=== PATIENT | female | born 1985 | race Caucasian/White ===

== ENCOUNTER 2019-05-16 12:05 | Emergency (ER) | payer SELFPAY ==
[2019-05-16 12:07] VITALS: BP 124/92; PULSE 103; PULSE 110; RESP 18; RESP 19; TEMP 36.9; O2SAT 98; O2SAT 99; BMI 20.5
--- NOTE | 2019-05-16 12:26 | EKG12_ITS ---
Test Reason : DYSRHYTHMIA Blood Pressure : / mmHG Vent. Rate : 094 BPM Atrial Rate : 094 BPM P-R Int : 126 ms QRS Dur : 066 ms QT Int : 356 ms P-R-T Axes : 071 056 062 degrees QTc Int : 445 ms Normal sinus rhythm Normal ECG Confirmed by KSENIA NEWSOME ([id number]), general expeditor LINDSAY SUAREZ ([id number]) on 05/19/2019 11:20:49 AM Referred By: GERALDINE Confirmed By:KSENIA NEWSOME
--- NOTE | 2019-05-16 12:26 | CT_ITS ---
STUDY: CT BRAIN WITHOUT CONTRAST REASON FOR EXAM: Female, 33 years old. Semi responsive in car woke with Narcan. RADIATION DOSAGE (If Supplied By Facility): CTDIvol = ( 44.99 ) mGy, DLP = ( 762.36 ) mGycm TECHNIQUE: Transaxial CT imaging of the brain was performed without administration of intravenous contrast material. Individualized dose optimization techniques were used for this CT. COMPARISON: No relevant priors. FINDINGS: Normal soft tissue structures. Normal calvarium. Normal size ventricles and extra-axial spaces for the patient's age. Normal white matter tracts of the cerebral hemispheres. Normal basal ganglia and thalami. Normal brainstem. Normal cerebellum. There is no intracranial hemorrhage. There are no findings of an acute ischemic infarction. The right-sided maxillary mucosal retention cyst. CT/Brain/Head without Contrast IMPRESSION: Normal unenhanced CT scan of the brain. Electronically Signed: Ruth Martinez MD at 13:11 EST Tel , Service support ,
--- NOTE | 2019-05-16 12:27 | ED.VIS.GEN ---
History of Present Illness Chief Complaint: Unresponsive Informant: Patient, D[employer]or Onset: Today - JPTA Context: Sudden Onset Quality: unresponsive Location: sitting in her car Current Severity: gone Maximum Severity: Severe Narrative: Patient states an acquaintance of hers called and asked for her to give her a ride to a town 9 miles away. She told her okay, she got in the car when she picked her up and then she does not remember anything until she awoke by paramedics giving her 2 mg of Narcan intranasally in that town 9 miles away. The girl she gave a ride to was gone. Patient denies doing any drugs or substances. She does not have a history of opiate or IV drug use. She is a smoker. She was feeling fine today before this. No recent illnesses. No head injuries. She states her brain feels a little foggy in her vision is a little blurry but she otherwise feels fine but scared. - Past Medical History (1) Anxiety Status: Chronic Past Medical History - Allergies and Home Meds Allergies/Adverse Reactions: Allergies Sulfa (Sulfonamide Antibiotics) Allergy (Verified 05/16/19 12:06) Hives Primary Care Physician: Care Physician,No Primary [Primary Care Provider] - Lives: Alone Smoking Status: Current every day smoker Alcohol: None Drugs: None Review of Systems General: Reports: Malaise. Denies: Chills, Fever, Sweats Eyes: Reports: Blurred Vision - bilaterally. Denies: Diplopia ENT: Denies: Rhinorrhea, Sore throat Cardiovascular: Denies: Chest pain, Palpitations Respiratory: Denies: Dyspnea, Cough, Dyspnea on exertion Gastrointestinal: Denies: Abdominal pain, Nausea, Vomiting, Diarrhea, Melena, Hematochezia Genitourinary: Denies: Dysuria, Hematuria, Frequency Musculoskeletal: Denies: Neck pain, Back pain, Swelling, Extremity Pain Skin: Denies: Rash, Wounds Neurological: Denies: Headache, Weakness, Numbness Physical Exam Vital Signs/Narrative: Vital Signs Temp Pulse Resp BP Pulse Ox 05/16/19 12:07 98.5 F 103 H 18 124/92 H 99 Inital Vital Signs reviewed: Yes General: Well nourished, Well developed, No Acute Distress Head: Normocephalic, Atraumatic Eyes: Perrl, EOMI ENT: Moist mucous membranes, No rhinorrhea Neck: Supple, Nontender Cardiovascular: Regular rate, Regular rhythm, No murmurs Respiratory: No distress, CTA bilaterally, Chest nontender Abdomen: Soft, Nontender, Nondistended, Normal bowel sounds Back: Nontender, Normal Inspection Extremities: Nontender, No edema Skin: Normal color, No rash, No Trauma - no evidence of any track conroy to indicate IVDU Neurological: Alert, Oriented x3, Cranial nerves II-XII grossly intact, Normal Strength, Normal Sensation, Normal Gait Psychological: Tearful Diagnostic/Tx/Re-eval Impressions Brain CT 05/16/19 12:26 IMPRESSION: Normal unenhanced CT scan of the brain. Electronically Signed: Ruth Martinez MD at 13:11 EST Tel , Service support , 05/16/19 12:26 Brain/Head without Contrast [CT] Stat Laboratory Results 05/16/19 05/16/19 05/16/19 12:34 12:34 12:34 WBC 5.0 RBC 4.65 Hgb 14.5 Hct 43.4 MCV 93.3 MCH 31.2 MCHC 33.4 RDW Std Deviation 43.5 RDW Coeff of Armen 12.8 Plt Count 242 MPV 8.8 Immature Gran % (Auto) 0.200 Neut % (Auto) 54.5 Lymph % (Auto) 38.3 [place] % (Auto) 6.2 Eos % (Auto) 0.2 Baso % (Auto) 0.6 Absolute Neuts (auto) 2.7 Absolute Lymphs (auto) 1.91 Nucleated RBC % 0 Sodium 141 Potassium 3.5 Chloride 106 Carbon Dioxide 27.0 Anion Gap 8 BUN 11 Creatinine 0.73 Estim Creat Clear Calc 88.98 Est GFR (MDRD) Af Amer 116 Est GFR (MDRD) Non-Af 96 BUN/Creatinine Ratio 15.1 Glucose 89 Calcium 8.3 L Urine Test Negative Urine Opiates Screen Urine Methadone Screen Ur Barbiturates Screen Ur Phencyclidine Scrn Ur Amphetamines Screen U Methamphetamin-MDMA U Benzodiazepines Scrn Urine Cocaine Screen U Cannabinoids Screen Ur Drug Screen Comment 05/16/19 12:34 WBC RBC Hgb Hct MCV MCH MCHC RDW Std Deviation RDW Coeff of Armen Plt Count MPV Immature Gran % (Auto) Neut % (Auto) Lymph % (Auto) [place] % (Auto) Eos % (Auto) Baso % (Auto) Absolute Neuts (auto) Absolute Lymphs (auto) Nucleated RBC % Sodium Potassium Chloride Carbon Dioxide Anion Gap BUN Creatinine Estim Creat Clear Calc Est GFR (MDRD) Af Amer Est GFR (MDRD) Non-Af BUN/Creatinine Ratio Glucose Calcium Urine Test Urine Opiates Screen NEGATIVE Urine Methadone Screen NEGATIVE Ur Barbiturates Screen NEGATIVE Ur Phencyclidine Scrn NEGATIVE Ur Amphetamines Screen NEGATIVE U Methamphetamin-MDMA NEGATIVE U Benzodiazepines Scrn NEGATIVE Urine Cocaine Screen NEGATIVE U Cannabinoids Screen NEGATIVE Ur Drug Screen Comment - Rhythm Strip Rhythm Strip: Sinus Rhythm Rate: 95 Ectopy: None - EKG Initial EKG Interpretation: Sinus Rhythm, No Acute Injury Pattern - normal EKG - Medical Decision Making Given patient's story and symptoms, along with her exam, this is suspicious for a fentanyl exposure. There is a high prevalence of fentanyl overdose/abuse in the area in recent times, and there have been several recent reported cases of nursing collapsing when caring for car fentanyl-exposed the patient's, just from being in the room. As I discussed with the patient prior to running any testing, this is a possible scenario for her. She acted very scared and continued to state that she had no idea what happened to her but that she intentionally has done no drugs, except she smokes cigarettes. Therefore as I discussed with her, since it is impossible to test for fentanyl here in the ER and confirmed this therapy, I recommended running other test to rule out other problems while monitoring her since she was awakened with Narcan. She agreed with this plan. Testing is negative as above. However prior to reviewing it and reevaluating the patient, she ELOPED, stating to the nurse because of I'm tired of waiting. I know what I did was stupid. ED Disposition - Plan for ED Patient: Disposition: Against Medical Advice Diagnosis: Accidental fentanyl overdose Referrals: Care Physician,No Primary [Primary Care Provider] -
[2019-05-16 12:44] LABS: Absolute Lymphocyte Count 1.91 X10^3/uL (0.83-4.51); Absolute Neutrophil Count 2.7 X10^3/uL (2.0-7.7); Basophil# 0.03 X10^3/uL; Basophil% 0.6 % (0-1); Eosinophil# 0.01 X10^3/uL; Eosinophils% 0.2 % (0-5); Hematocrit 43.4 % (37-47); Hemoglobin 14.5 g/dL (12.0-15.0); Lymphocyte # 1.91 X10^3/ul (4.0); Lymphocyte % 38.3 % (19-41); Mean Corp Hgb Conc 33.4 g/dL (32-36); Mean Corpuscular Hgb 31.2 pg (27.0-32.0); Mean Corpuscular Volume 93.3 fL (81-99); Mean Platelet Vol. 8.8 fl (6.2-12.0); Monocyte# 0.31 X10^3/uL; Monocyte% 6.2 % (0-10); NRBC Flagged by Analyzer 0 % (0-5); Neutrophil # 2.72 X10^3/uL (2.7-7.7); Neutrophil % 54.5 % (47-70); Platelet Count 242 K/mm3 (150-450); RBC Distribution Width CV 12.8 % (11.6-14.6); RBC Distribution Width SD 43.5 fl (35.1-43.9); Red Blood Count 4.65 M/mm3 (4.2-5.4)
[2019-05-16 12:52] LABS: Internal QC Validated? YES +Cl - CLEAR BKGD; Pregnancy, Urine Negative Negative
[2019-05-16 12:58] LABS: Anion Gap 8 (5-15); BUN 11 mg/dL (7-18); BUN/Creat Ratio 15.1 RATIO (10-20); Calcium,Total 8.3 mg/dL (8.5-10.1); Chloride 106 mmol/L (98-107); Creatinine, Serum 0.73 mg/dL (0.55-1.02); EST Glomerular Filtration Rate 96 mL/min (>60); Est Glom Filt Rate - Afr Amer 116 mL/min (>60); Estimated Creatinine Clearance 88.98 ml/min; Glucose 89 mg/dL (74-106); Potassium 3.5 mmol/L (3.5-5.1); Sodium Level 141 mmol/L (136-145)
[2019-05-16 13:00] LABS: Amphetamine Urine VISTA NEGATIVE (<1000 ng/mL); Barbiturate Urine VISTA NEGATIVE (< 200 ng/mL); Benzodiazepine Urine VISTA NEGATIVE (< 200 ng/mL); Cocaine Urine VISTA NEGATIVE (< 300 ng/mL); Ecstacy Urine VISTA NEGATIVE (< 500 ng/mL); Methadone Urine VISTA NEGATIVE (< 300 ng/mL); PCP Urine VISTA NEGATIVE (< 25 ng/mL); THC Urine VISTA NEGATIVE (< 50 ng/mL); Vista UDS pH Range 5
--- NOTE | 2019-05-16 14:21 | ED.RN ---
PT STATED SHE WANTED HER IV OUT OR SHE WAS TAKING IT OUT HERSELF. STATED SHE HAS BEEN HER LONG ENOUGH AND IS GOING HOME. IV WAS DC'D WITH CATHETER INTACT. NURSE AND PHYSICIAN NOTIFIED. SECURITY AT BEDSIDE WELL. PT EDUCATED ON THE RISKS AND DANGERS OF WHAT COULD HAPPEN IF NARCAN WEARS OFF AND ALSO IF SHE GOES HOME AND USES AGAIN. PT VERBALIZED UNDERSTANDING.
== END 2019-05-16 14:32 | disposition left against medical advice (07) ==
LOC: ED 13:04
PROVIDERS: Emergency Provider Emergency Medicine
DX: T40.4X1A Poisoning by other synthetic narcotics, accidental (unintentional), initial encounter (principal); H53.8 Other visual disturbances; Y92.9 Unspecified place or not applicable; Z53.21 Procedure and treatment not carried out due to patient leaving prior to being seen by health care provider; F17.200 Nicotine dependence, unspecified, uncomplicated
CPT/HCPCS: 70450; 80048; 80307; 81025; 85025; 93005; 96360; 96361; 99285; J7030; A4216

== ENCOUNTER 2019-05-17 09:59 | Emergency (ER) | payer SELFPAY ==
[2019-05-16 12:07] VITALS: BMI 20.5
[2019-05-17 10:00] VITALS: BP 160/113; PULSE 121; RESP 19; TEMP 36.6; O2SAT 99; BMI 19.5
--- NOTE | 2019-05-17 10:18 | ED.DCSUM_ITS ---
History of Present Illness Chief Complaint: Nausea/Vomiting Detail of Chief Complaint: Nausea and vomiting, excessive alcohol use Informant: Patient Onset: Days Narrative: Patient reports nausea and vomiting for the last 3 days having difficulty keeping anything down. She states she is been drinking a lot of vodka in the last week and a half stating that it is cheap and easily available. She states she just does not want to feel anything. She denies that she is suicidal. She states her is currently in [facility] for the next 6 months and this seemed to trigger her depression and drinking. It is noted the patient was seen here yesterday after an unresponsive episode. She woke up after being given 2 mg of intranasal Narcan. Patient denies any drug use. - Past Medical History (1) Anxiety Status: Chronic Past Medical History - Allergies and Home Meds Allergies/Adverse Reactions: Allergies Sulfa (Sulfonamide Antibiotics) Allergy (Verified 05/17/19 10:00) Hives Primary Care Physician: Care Physician,No Primary [Primary Care Provider] - Prior records reviewed: Yes Lives: Alone Smoking Status: Current every day smoker Alcohol: Occasional Review of Systems General: Denies: Chills, Fever Eyes: Denies: Visual changes - bilaterally ENT: Denies: Bilateral ear pain Cardiovascular: Denies: Chest pain Respiratory: Denies: Dyspnea Gastrointestinal: Reports: Nausea, Vomiting. Denies: Diarrhea Genitourinary: Denies: Dysuria Musculoskeletal: Denies: Extremity Pain Psych: Reports: Depression. Denies: Suicidal thoughts, Suicidal ideations Allergy: Denies: Uticaria Physical Exam Vital Signs/Narrative: Vital Signs Temp Pulse Resp BP Pulse Ox 05/17/19 10:00 97.8 F 121 H 19 H 160/113 H 99 Inital Vital Signs reviewed: Yes General: Well nourished, Well developed Head: Normocephalic ENT: Moist mucous membranes Cardiovascular: Tachycardia Respiratory: No distress, CTA bilaterally Abdomen: Soft, Nontender Extremities: Nontender Skin: Normal color Neurological: Oriented x3 Psychological: Tearful Diagnostic/Tx/Re-eval Laboratory Results 05/17/19 05/17/19 05/17/19 10:30 10:30 10:30 WBC 7.0 RBC 4.55 Hgb 14.6 Hct 42.5 MCV 93.4 MCH 32.1 H MCHC 34.4 RDW Std Deviation 43.5 RDW Coeff of Armen 12.7 Plt Count 222 MPV 8.8 Immature Gran % (Auto) 0.300 Neut % (Auto) 80.6 H Lymph % (Auto) 12.5 L [place] % (Auto) 6.1 Eos % (Auto) 0.1 Baso % (Auto) 0.4 Absolute Neuts (auto) 5.7 Absolute Lymphs (auto) 0.88 Nucleated RBC % 0 Sodium 139 Potassium 3.2 L Chloride 101 Carbon Dioxide 30.0 Anion Gap 8 BUN 14 Creatinine 0.68 Estim Creat Clear Calc 90.95 Est GFR (MDRD) Af Amer 127 Est GFR (MDRD) Non-Af 105 BUN/Creatinine Ratio 20.7 H Glucose 106 Calcium 9.2 Total Bilirubin 0.70 Direct Bilirubin 0.27 AST 35 ALT 30 Alkaline Phosphatase 142 H Total Protein 7.6 Albumin 3.8 Globulin 3.8 Serum , Qual Urine Color Urine Clarity Urine pH Ur Specific [place] Urine Protein Urine Glucose (UA) Urine Ketones Urine Occult Blood Urine Nitrite Urine Bilirubin Urine Urobilinogen Ur Leukocyte Esterase Urine RBC Urine WBC Ur Squamous Epith Cells Urine Bacteria Urine Mucus Urine Opiates Screen Urine Methadone Screen Ur Barbiturates Screen Ur Phencyclidine Scrn Ur Amphetamines Screen U Methamphetamin-MDMA U Benzodiazepines Scrn Urine Cocaine Screen U Cannabinoids Screen Ur Drug Screen Comment Ethyl Alcohol 3.0 05/17/19 05/17/19 05/17/19 10:30 12:34 12:34 WBC RBC Hgb Hct MCV MCH MCHC RDW Std Deviation RDW Coeff of Armen Plt Count MPV Immature Gran % (Auto) Neut % (Auto) Lymph % (Auto) [place] % (Auto) Eos % (Auto) Baso % (Auto) Absolute Neuts (auto) Absolute Lymphs (auto) Nucleated RBC % Sodium Potassium Chloride Carbon Dioxide Anion Gap BUN Creatinine Estim Creat Clear Calc Est GFR (MDRD) Af Amer Est GFR (MDRD) Non-Af BUN/Creatinine Ratio Glucose Calcium Total Bilirubin Direct Bilirubin AST ALT Alkaline Phosphatase Total Protein Albumin Globulin Serum , Qual NEGATIVE Urine Color Yellow Urine Clarity Sl. Cloudy Urine pH 7.0 Ur Specific [place] 1.015 Urine Protein 15 H Urine Glucose (UA) Normal Urine Ketones 50 H Urine Occult Blood Negative Urine Nitrite Negative Urine Bilirubin Negative Urine Urobilinogen Normal Ur Leukocyte Esterase 25 H Urine RBC 0 SEEN Urine WBC 0-5 SEEN Ur Squamous Epith Cells 0-5 SEEN Urine Bacteria RARE Urine Mucus 2+ Urine Opiates Screen NEGATIVE Urine Methadone Screen NEGATIVE Ur Barbiturates Screen NEGATIVE Ur Phencyclidine Scrn NEGATIVE Ur Amphetamines Screen NEGATIVE U Methamphetamin-MDMA NEGATIVE U Benzodiazepines Scrn NEGATIVE Urine Cocaine Screen NEGATIVE U Cannabinoids Screen POSITIVE H Ur Drug Screen Comment Ethyl Alcohol - Medical Decision Making Patient was given IV fluids and Zofran. On repeat evaluation she feels much improved and she is able to tolerate p.o. Heart rate is 105. Social work did see the patient and offered multiple resources for help. She continues to deny suicidal ideation but is appreciative of the help she was offered. She will be discharged with a prescription for Zofran. ED Disposition - Plan for ED Patient: Disposition: Home or Assisted Living Diagnosis: Vomiting Instructions: VOMITING AND DIARRHEA, Nonspecific (Adult) Prescriptions: Ondansetron [Zofran Odt] 4 mg PO Q8H PRN PRN #10 tablet PRN Reason: Nausea Referrals: Oscar Varghese MD [STAFF PHYSICIAN] - As Needed
[2019-05-17 10:44] LABS: Absolute Lymphocyte Count 0.88 X10^3/uL (0.83-4.51); Absolute Neutrophil Count 5.7 X10^3/uL (2.0-7.7); Basophil# 0.03 X10^3/uL; Basophil% 0.4 % (0-1); Eosinophil# 0.01 X10^3/uL; Eosinophils% 0.1 % (0-5); Hematocrit 42.5 % (37-47); Hemoglobin 14.6 g/dL (12.0-15.0); Lymphocyte # 0.88 X10^3/ul (4.0); Lymphocyte % 12.5 % (19-41); Mean Corp Hgb Conc 34.4 g/dL (32-36); Mean Corpuscular Hgb 32.1 pg (27.0-32.0); Mean Corpuscular Volume 93.4 fL (81-99); Mean Platelet Vol. 8.8 fl (6.2-12.0); Monocyte# 0.43 X10^3/uL; Monocyte% 6.1 % (0-10); NRBC Flagged by Analyzer 0 % (0-5); Neutrophil # 5.66 X10^3/uL (2.7-7.7); Neutrophil % 80.6 % (47-70); Platelet Count 222 K/mm3 (150-450); RBC Distribution Width CV 12.7 % (11.6-14.6); RBC Distribution Width SD 43.5 fl (35.1-43.9); Red Blood Count 4.55 M/mm3 (4.2-5.4)
--- NOTE | 2019-05-17 10:45 | CM.ED ---
SOCIAL WORK INFORMANT: DR. MORRIS REASON FOR REFERRAL: RESOURCES LIVING ARRANGEMENTS: PATIENT REPORTS IS CURRENTLY LIVING WITH [id number]. PATIENT STATES RECENTLY MOVED TO [place] FROM [place], [place]. IS IN LONG TERM FOR 6 MONTHS. EMPLOYMENT: PATIENT STATES WAS WORKING AT [employer] IN [place] PRIOR TO MOVE. CURRENTLY RECEIVING UNEMPLOYMENT. SUPPORT/RESOURCES: FAMILY, LIMITED RESOURCES/SELF-PAY MENTAL HEALTH HISTORY/TREATMENT: PATIENT REPORTS HISTORY OF ANXIETY AND DEPRESSION. PATIENT STATES HAS NEVER BEEN IN COUNSELING OR BEEN TREATED FOR MENTAL HEALTH. SUBSTANCE ABUSE: PATIENT ADMITS TO MARIJUANA AND ALCOHOL USE. PATIENT STATES HAS BEEN DRINKING MORE THE LAST FEW WEEKS D/T DEPRESSION AND BEING IN LONG TERM. PATIENT DENIES ANY OTHER SUBSTANCES. ASSESSMENT: MET WITH PATIENT AT BEDSIDE. INTRODUCED ROLE AND REASON FOR REFERRAL. PATIENT REPORTS DOES NOT HAVE ANY INSURANCE. EDUCATION PROVIDED ON APPLYING FOR MEDICAID PATIENT REPORTS WOULD BE ELIGIBLE. [place] BENEFITS NUMBER PROVIDED FOR PATIENT TO CALL. PATIENT ADMITS TO ANXIETY AND DEPRESSION AND STATES HAS BEEN DRINKING VODKA TO HELP COPE. PATIENT UNDERSTANDS THIS IS NOT HEALTHY COPING AND IS OPEN TO RESOURCES. LIST OF SUBSTANCE ABUSE RESOURCES ALONG WITH COUNSELING AGENCIES PROVIDED TO PATIENT. PATIENT DENIES ANY FURTHER NEEDS OR QUESTIONS. SW'S CONTACT INFORMATION GIVEN. DR. MORRIS UPDATED ON THE ABOVE. PLAN: HOME WITH [id number] BEFORE. RESOURCES PROVIDED. SHONDA SILVER, AUTOMOTIVE TECHNOLOGY INSTRUCTOR.
[2019-05-17 10:57] LABS: AST(SGOT) 35 U/L (15-37); Alanine Aminotransfer ALT/SGPT 30 U/L (13-56); Albumin, Serum 3.8 g/dL (3.2-5.0); Alkaline Phosphatase 142 U/L (45-117); Anion Gap 8 (5-15); BUN 14 mg/dL (7-18); BUN/Creat Ratio 20.7 RATIO (10-20); Bilirubin, Direct 0.27 mg/dL (0.00-0.30); Calcium,Total 9.2 mg/dL (8.5-10.1); Chloride 101 mmol/L (98-107); Creatinine, Serum 0.68 mg/dL (0.55-1.02); EST Glomerular Filtration Rate 105 mL/min (>60); Est Glom Filt Rate - Afr Amer 127 mL/min (>60); Estimated Creatinine Clearance 90.95 ml/min; Globulin 3.8 g/dL (2.2-4.2); Glucose 106 mg/dL (74-106); Potassium 3.2 mmol/L (3.5-5.1); Protein, Total 7.6 g/dL (6.4-8.2); Sodium Level 139 mmol/L (136-145)
[2019-05-17] MEDS: Ondansetron 4 MG/2 ML Vial IV (11:07)
[2019-05-17 11:12] LABS: Internal QC Validated? YES +Cl - CLEAR BKGD; Pregnancy, Serum, hCG Quali. NEGATIVE Negative
[2019-05-17 12:43] LABS: Red Blood Cells-Urine 0 SEEN /hpf (0-5)
[2019-05-17 12:48] LABS: Color, Urine Yellow (Yellow); Glucose, Dipstick Normal (Normal); Ketone-Dipstick 50 mg/dl (Negative); Leukocyte Esterase-Dipstick 25 /ul (Negative); Nitrite-Dipstick Negative (Negative); Occult Blood-Urine Negative /ul (Negative); Protein-Dipstick 15 mg/dl (Negative); Specific Gravity, Urine 1.015 (1.002-1.030); Urine Bilirubin Dipstick Negative (Negative); Urine Clarity Sl. Cloudy (Clear); Urine Urobilinogen Normal (Normal)
[2019-05-17 12:55] LABS: Bacteria RARE /hpf (None Seen); Mucous, Urine 2+ /hpf (<or=2+); Squamous Epithelial Cells - UA 0-5 SEEN /hpf (5-10); White Blood Cells 0-5 SEEN /hpf (0-5)
[2019-05-17 12:58] LABS: Amphetamine Urine VISTA NEGATIVE (<1000 ng/mL); Barbiturate Urine VISTA NEGATIVE (< 200 ng/mL); Benzodiazepine Urine VISTA NEGATIVE (< 200 ng/mL); Cocaine Urine VISTA NEGATIVE (< 300 ng/mL); Ecstacy Urine VISTA NEGATIVE (< 500 ng/mL); Methadone Urine VISTA NEGATIVE (< 300 ng/mL); PCP Urine VISTA NEGATIVE (< 25 ng/mL); THC Urine VISTA POSITIVE (< 50 ng/mL); Vista UDS pH Range 6
[2019-05-17 13:27] VITALS: BP 138/83; PULSE 97; RESP 16; O2SAT 99
[2019-05-17 13:29] VITALS: BP 138/83; PULSE 97; RESP 16; O2SAT 99
== END 2019-05-17 13:30 | disposition home or self-care (01) ==
PROVIDERS: Emergency Provider Emergency Medicine
DX: R11.2 Nausea with vomiting, unspecified (principal); F10.99 Alcohol use, unspecified with unspecified alcohol-induced disorder; F32.9 Major depressive disorder, single episode, unspecified; F17.200 Nicotine dependence, unspecified, uncomplicated
CPT/HCPCS: 80048; 80076; 80307; 80320; 81001; 84703; 85025; 96361; 96374; 99283; J7030; A4216; G0480; J2405